=== PATIENT | female | born 1940 | race Caucasian/White ===

== ENCOUNTER 2017-09-20 10:31 | Outpatient (CLI) | payer MEDICARE, OTHER | END 2017-09-20 10:32 | disposition home or self-care (01) | LOC: BICMRI 10:31 | PROVIDERS: ATTEND Anesthesiology Pain Medicine | DX: M47.892 Other spondylosis, cervical region (principal); M47.894 Other spondylosis, thoracic region; K44.9 Diaphragmatic hernia without obstruction or gangrene | CPT/HCPCS: 72146 ==

== ENCOUNTER 2018-07-18 09:27 | Day surgery (SDC) | payer MEDICARE, OTHER ==
[2018-07-15 12:32] VITALS: BMI 34.4
[2018-07-18] MEDS ORDERED: Midazolam HCl 2 mg/2 ml Vial ONE (10:44)
[2018-07-18] MEDS ORDERED: Fentanyl 100 MCG/2 ML VIAL ONE ×3 (10:44→12:46)
[2018-07-18] MEDS ORDERED: Bupivacaine/Epinephrine 0.25% 30 ML VIAL ONE (10:49)
[2018-07-18] MEDS ORDERED: Bacitracin Zinc Ointment 30 gm TUBE ONE (10:49)
[2018-07-18] MEDS ORDERED: cefOXitin Sodium/Dextrose,Iso 2 GM in Premix Bag 1 BAG IVPB SCH (11:15)
[2018-07-18 11:20] LABS: #Eosinphils 0.1 thou/uL (0.0-0.7); #Lymphocytes 1.4 thou/uL (1.20-3.40); #Monocytes 0.6 thou/uL (0.11-0.59); #Neutrophils 4.3 thou/uL (1.40-6.50); %Basophils 0.7 % (0.0-1.0); %Eosinophils 1.3 % (0.0-10.0); %Lymphocytes 21.2 % (21.0-51.0); %Monocytes 9.2 % (0.0-10.0); %Neutrophils 67.6 % (42.0-75.0); Hemoglobin 11.7 g/dL (12.0-16.0); Mean Corpuscular HGB CONC 32.3 g/dL (32.0-36.0); Mean Platelet Volume 7.3 fL (7.4-10.4); Platelet Count 264 thou/uL (130-400); Red Blood Cell (RBC) Count 3.67 mill/uL (4.20-5.40); White Blood Cell (WBC) Count 6.4 thou/uL (4.8-10.8)
[2018-07-18 11:36] LABS: ALT (SGPT) 13 U/L (8-55); AST (SGOT) 23 U/L (5-34); Alkaline Phosphatase 65 U/L (40-150); Anion Gap 15 mmol/L (10-20); BUN (Urea Nitrogen) 8 mg/dL (9.8-20.1); Bilirubin, Total 0.7 mg/dL (0.2-1.2); Calc. Creatinine Clearance 79 mL/min (70-130); Calcium 8.7 mg/dL (7.8-10.44); Carbon Dioxide 24 mmol/L (23-31); Chloride 109 mmol/L (98-107); Estimated GFR-MDRD 64; Globulin 3.1 g/dL (2.4-3.5); Glucose 88 mg/dL (83-110); Potassium 4.6 mmol/L (3.5-5.1); Protein, Total 7.1 g/dL (6.0-8.3); Sodium 143 mmol/L (136-145)
[2018-07-18] MEDS ORDERED: Promethazine HCl 25 MG/ML VIAL ONE (13:43)
--- NOTE | 2018-07-18 14:07 | OP ---
DATE OF PROCEDURE: 07/18/2018 PREOPERATIVE DIAGNOSIS: Bleeding hemorrhoids. PROCEDURE PERFORMED: PPH stapled hemorrhoidectomy. INDICATIONS: A 78-year-old female, who has had rectal bleeding. Had a colonoscopy, only source found was her hemorrhoids. FINDINGS: Grade 3 hemorrhoids. DESCRIPTION OF PROCEDURE: After informed consent was obtained, the patient was taken to the operating room and given general endotracheal anesthesia. She was placed in the prone Jackknife position. Her buttock cheeks were spread apart with tape. The perianal region was prepped and draped in the usual fashion. Local anesthesia with 0.5% Marcaine with epinephrine as a 4-quadrant anal block. The anal retractor was inserted and sutured in place with 0 silk sutures. Then, a pursestring of 2-0 Prolene placed circumferentially in the rectal mucosa. The stapler opened maximally. The anvil was advanced beyond the pursestring. The pursestring strings were pulled through channels on stapler with the pete hook tied as a knot, held closed on the shaft of the stapler as it was closed. Then, the stapler was fired and held for 30 seconds, then released for 30 seconds and then removed. The specimen inspected. There was no muscle fiber, sent to Pathology for further analysis. Hemostasis achieved with interrupted 3-0 chromic sutures. Then, the staple line was irrigated. Hemostasis assured. Gel-Foam impregnated with bacitracin was placed within the anal canal. Sterile bandage applied. The patient tolerated the procedure well and transferred to Recovery in good condition. Sponge and needle count verified correct x2. Job ID: [id number]
[2018-07-18] MEDS ORDERED: Ondansetron ODT 4 MG TAB ONE ×2 (14:45→15:53)
[2018-07-18] MEDS ORDERED: HYDROcodone/Acetaminophen 5/325 mg Tablet ONE (16:52)
== END 2018-07-18 17:34 | disposition home or self-care (01) ==
LOC: SDC 09:27
PROVIDERS: ATTEND Surgery
PROC: 06BY3ZC Excision of Hemorrhoidal Plexus, Percutaneous Approach (ICD-10-PCS; principal; 2018-07-18)
DX: K64.9 Unspecified hemorrhoids (principal); Z79.899 Other long term (current) drug therapy; Z86.718 Personal history of other venous thrombosis and embolism
CPT/HCPCS: 80053; 85025; 88304; 93005; 93010; 96374; J2250; J2550; J3010; Q0162

== ENCOUNTER 2018-11-04 12:59 | Outpatient (CLI) | payer MEDICARE, OTHER ==
--- NOTE | 2018-11-04 14:14 | MRI ---
[facility] lumbar spine: 11/04/2018 COMPARISON: 01/24/2014 HISTORY: History of compression fracture, spondylosis TECHNIQUE: Multiplanar multisequence MR imaging of the lumbar spine provided without contrast FINDINGS: The sagittal STIR imaging demonstrates no focal area of osseous marrow edema. There is an old anterior wedge compression fracture status post kyphoplasty at T12 with no significan t interval change when compared to the 2013 examination. No significant anterolisthesis or retrolisthesis is present within the lumbar spine. T11-12: There is disc space narrowing and disc desiccation with posterior disc osteophyte complex and left-sided facet hypertrophy. Anterior osteophyte formation noted. No significant central canal or n eural foraminal stenosis. T12-L1: There is mild bilateral facet hypertrophy. There is disc space narrowing and disc desiccation with disc osteophyte complex. No significant central canal stenosis. Mild left neural foraminal sten osis. L1-2: Mild bilateral facet hypertrophy. Mild disc space narrowing and disc desiccation with no signif icant central canal or neural foraminal stenosis. L2-3: Mild bilateral facet hypertrophy. Minimal disc bulge. No significant central canal or neural fo raminal stenosis. L3-4: Mild bilateral facet hypertrophy. Disc desiccation and mild disc bulge. No associated central c anal or neural foraminal stenosis. L4-5: There is disc space narrowing and disc desiccation with bilateral facet hypertrophy. No signifi cant central canal or neural foraminal stenosis. L5-S1: Mild bilateral facet hypertrophy with no significant central canal or neural foraminal stenosi s. Incompletely imaged diverticulosis of the sigmoid colon noted. Retroperitoneal structures demonstrate no acute findings. IMPRESSION: Stable lumbar spine MRI as detailed above. No significant central canal or neural foramin al stenosis is noted.
== END 2018-11-04 13:00 | disposition home or self-care (01) ==
LOC: TBSIIMAG 12:59
PROVIDERS: ATTEND Anesthesiology Pain Medicine
DX: M47.814 Spondylosis without myelopathy or radiculopathy, thoracic region (principal)
CPT/HCPCS: 72148

== ENCOUNTER 2018-11-07 10:24 | Outpatient (CLI) | payer MEDICARE, OTHER ==
[2018-11-07] MEDS ORDERED: diphenhydrAMINE 50 MG/ML VIAL ONE (11:11)
[2018-11-07] MEDS ORDERED: methylPREDNISolone Sod Succ/PF 125 MG/2 ML VIAL ONE (11:11)
[2018-11-07] MEDS ORDERED: Hydrocortisone Sod Succ/PF 100 mg/2 ml Vial IVP SCH (11:30)
[2018-11-07] MEDS ORDERED: diphenhydrAMINE 50 MG/ML VIAL IVP SCH (11:30)
[2018-11-07] MEDS ORDERED: Famotidine/PF 20 mg/2ml Vial SLOW IVP SCH (11:30)
[2018-11-07] MEDS ORDERED: Iopamidol 370 76% 100 ML VIAL ONE (11:58)
[2018-11-07] MEDS ORDERED: Iopamidol 370 76% 50 ML VIAL FS ONE (11:58)
[2018-11-07] MEDS ORDERED: Sodium Chloride 0.9% 30 ML ONE (13:00)
--- NOTE | 2018-11-07 14:13 | CT ---
FCT Abdomen Pelvis W Con History: [Acute abdominal pain. Diverticulosis.] Comparison: None. Findings: There is a large sliding hiatal hernia with the surgical staple along the anterior margin o f the hernia. There is abnormal edema of the sigmoid colon with thickening with a focal inflamed post erior diverticulum. No evidence for abscess. No contained perforation. There is a long segment of thi ckened sigmoid colon likely sequela of multiple prior bouts of diverticulitis. No free intraperitoneal gas or fluid. The aortic contour is nonaneurysmal. No retroperitoneal adenopa thy. Urinary bladder is unremarkable. No hydronephrosis. The adrenal glands are normal. The liver is alcides l. Prior cholecystectomy. There is a compression deformity of the L1 superior endplate, likely chroni c. There is a T12 compression deformity containing significant. Impression: Uncomplicated sigmoid diverticulitis. No evidence for macro perforation or abscess format ion. Follow-up colonoscopy after treatment is recommended.
== END 2018-11-07 10:25 | disposition home or self-care (01) ==
LOC: CT 10:24
PROVIDERS: ATTEND Physician Assistant Medical
DX: K57.31 Diverticulosis of large intestine without perforation or abscess with bleeding (principal); R10.9 Unspecified abdominal pain; K64.8 Other hemorrhoids; K21.9 Gastro-esophageal reflux disease without esophagitis; K92.1 Melena; K57.32 Diverticulitis of large intestine without perforation or abscess without bleeding
CPT/HCPCS: 36415; 74177; 80053; 81001; 85025; 87086; J1200; J2930; Q9967; S0028

== ENCOUNTER 2020-06-18 07:29 | Outpatient (CLI) | payer MEDICARE, OTHER ==
--- NOTE | 2020-06-18 09:10 | MRI ---
THORACIC SPINE MRI WITHOUT CONTRAST: HISTORY: Thoracic spine stenosis. Back pain since falling. T12 fracture. Previous kyphoplasty. COMPARISON: 04/07/2017, 09/20/2017. FINDINGS: Stable T1 marrow signal intensity of the thoracic vertebrae with mild heterogeneity, unchanged. Stabl e kyphoplasty at T12 with stable moderate loss of vertebral body height and retropulsion. Stable irregularity involving inferior endplate of T10. No evidence of an acute thoracic spine fracture. 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 Redemonstration of moderate hiatal hernia. Th ere is a small amount of fluid in the mid thoracic esophagus. The thoracic cord has a normal size and signal intensity. No cord malacia. No cord expansion. There is stable disc desiccation with mild loss of disc space height throughout the thoracic spine. N o significant posterior disc abnormality. No significant central canal stenosis. Stable mild central canal stenosis at the T12 level due to retropulsion. Bilateral extrarenal pelvises are noted IMPRESSION: 1. Stable kyphoplasty at T12 and stable irregularity involving inferior endplate of T10. 2. No significant central canal stenosis or significant neural foraminal narrowing throughout the tho racic spine. 3. Additional incidental findings as detailed above. 4. Stable heterogeneous T1 marrow signal intensity. Transcribed Date/Time: 06/18/2020 9:42 AM
--- NOTE | 2020-06-18 11:18 | MRI ---
MRI LUMBAR SPINE WITHOUT CONTRAST: Date: 06/18/2020 INDICATION: History of spinal stenosis. COMPARISON: Prior exam dated 11/04/2018. FINDINGS: The vertebroplasty change and compression abnormality of T12 is stable. No new bone marrow signal abn ormality or acute fracture is grossly evident. The inferior end plate compression abnormality of T10 is stable. The visualized retroperitoneum reveals no acute abnormality. The extrarenal pelves of both kidneys similar. At L5-S1, there is no appreciable central canal or neural foraminal narrowing. At L4-5, there is stable Grade I anterolisthesis. There is moderate to severe facet joint degenerativ e change. There is no appreciable neural foraminal narrowing. At L3-4, there is a broad based bulge with facet hypertrophy, but no appreciable central canal or juvenal ral foraminal narrowing. This is stable to the prior. At L2-3, there is mild facet joint degenerative change and broad based disc bulge, but no appreciable central canal or neural foraminal narrowing. At L1-L2, there is a broad based bulge with appreciable central canal or neural foraminal narrowing. At T12-L1, there is a mild central canal narrowing from broad based disc osteophyte complex which is stable. There is no appreciable neural foraminal narrowing. Retropulsed bone from the compression abnormality of T12 and degenerative changes at T11 and T12 bria ce stable mild central canal narrowing. There is no neural foraminal narrowing. IMPRESSION: 1. Stable compression abnormality with vertebroplasty change at T12 and stable mild central canal na rrowing at T11-T12 and T12-L1. 2. Stable Grade I anterolisthesis of L4 on L5. POS: JOSE ALFREDO
== END 2020-06-18 07:30 | disposition home or self-care (01) ==
LOC: BICMRI 07:29
PROVIDERS: ATTEND Nurse Practitioner Family
DX: M54.14 Radiculopathy, thoracic region (principal); M48.062 Spinal stenosis, lumbar region with neurogenic claudication; M48.04 Spinal stenosis, thoracic region; M43.16 Spondylolisthesis, lumbar region; M48.05 Spinal stenosis, thoracolumbar region; G95.20 Unspecified cord compression; K44.9 Diaphragmatic hernia without obstruction or gangrene; Z98.890 Other specified postprocedural states
CPT/HCPCS: 72146; 72148